=== PATIENT | male | born 1975 | race Caucasian/White ===

== ENCOUNTER 2019-10-15 11:41 | Emergency (ER) | payer OTHER ==
[~2019-10-15] VITALS: Ht 180.3 cm; Wt 104.3 kg
[2019-10-15 11:53] VITALS: BP 120/69
--- NOTE | 2019-10-15 12:17 | NUR ---
TO ED 06 VIA W/C.
--- NOTE | 2019-10-15 12:24 | NUR ---
43 Y/O M C/C RIGHT KNEE SWELLING X 3 WEEKS. DENIES TRAUMA. PER PT TAKEN IBUPROFEN FOR PAIN CONTROL. SKIN IN WARM,DRY TO TOUCH. BILATERAL CMS WDL; ROM LIMITED ON RLE. PAIN 1/10; WITH MOVEMENT PAIN INCREASES. PT NKA. NO HX. NO RX. NO N/V/D. SIDE RAIL X1.
--- NOTE | 2019-10-15 12:24 | NUR ---
Dr. Brown is evaluating the patient at bedside.
--- NOTE | 2019-10-15 12:53 | NUR ---
PT RESTING IN BED, SIDE RAIL X1
--- NOTE | 2019-10-15 13:09 | NUR ---
APPLIED KNEE IMMOBILIZER TO RIGHT KNEE WITHOUT ANY ISSUES. PT DEMONSTRATED PROPER USE OF CRUTCHES
[2019-10-15 13:46] VITALS: BP 120/69
== END 2019-10-15 13:47 | disposition home or self-care (01) ==
LOC: MED 11:41
DX: M25.561 Pain in right knee (principal)
CPT/HCPCS: 73562; 99283

== ENCOUNTER 2020-08-22 21:57 | Emergency (ER) | payer OTHER ==
[~2020-08-22] VITALS: Ht 180.3 cm; Wt 106.6 kg
[2020-08-22 22:00] VITALS: BP 160/98
--- NOTE | 2020-08-22 22:02 | NUR ---
TO LOBBY A/W BED AMBULATORY
--- NOTE | 2020-08-22 22:04 | NUR ---
SEEN AND EXAMINED BY LIZ WITH ORDERS AND CARRIED OUT.
[2020-08-22] MEDS ORDERED: ONDANSETRON 4 MG ODT PO ONE (22:25)
[2020-08-22] MEDS ORDERED: HYDROcodone/APAP 5/325 MG 1 TAB TAB PO ONE (22:25)
--- NOTE | 2020-08-22 22:50 | NUR ---
PATIENT PRESENTS TO ED WITH C/O TESTICLE PAIN . SKIN IS PINK/WARM/DRY; AAOX4 WITH EVEN AND STEADY GAIT; LUNGS CLEAR BL; HR EVEN AND REGULAR; PT DENIES ANY FEVER, CP, SOB, OR COUGH AT THIS TIME; PATIENT STATES PAIN OF 0/10 AT THIS TIME; VSS; PATIENT POSITIONED FOR COMFORT; HOB ELEVATED; BEDRAILS UP X2; BED DOWN. ER MD MADE AWARE OF PT STATUS.
--- NOTE | 2020-08-22 22:52 | NUR ---
TO BED 1 AMBULATORY WITH C/O TESTICLE PAIN RATED 9/10. LABS HAVE BEEN DRAWN
--- NOTE | 2020-08-22 22:54 | NUR ---
PT AMBULATORY TO BED #1
[2020-08-22 23:05] LABS: BASOPHILS % (AUTO) 0.4 % (0.0-2.0); EOSINOPHILS % (AUTO) 0.3 % (0.0-4.0); HEMATOCRIT 42.3 % (36-52); HEMOGLOBIN 13.7 g/dL (12.0-18.0); LYMPHOCYTES # (AUTO) 1.2 K/uL (2.0-11.5); LYMPHOCYTES % (AUTO) 15.1 % (20.5-51.1); MEAN CORPUSCULAR HEMOGLOBIN 26 pg (27-31); MEAN CORPUSCULAR HGB CONC 33 g/dL (33-37); MEAN CORPUSCULAR VOLUME 80.7 fL (80-94); MONOCYTES # (AUTO) 0.3 K/uL (0.8-1.0); MONOCYTES % (AUTO) 4.2 % (1.7-9.3); NEUTROPHILS # (AUTO) 6.3 K/uL (1.8-7.7); PLATELET COUNT (AUTO) 285 K/uL (140-450); RED BLOOD CELL COUNT(AUTO) 5.24 MIL/uL (4.20-6.10); WHITE BLOOD COUNT (AUTO) 7.8 K/uL (4.8-10.8)
[2020-08-22 23:06] LABS: APPEARANCE,URINE CLEAR (CLEAR); BILIRUBIN,URINE 1+ (NEGATIVE); BLOOD, URINE 2+ (NEGATIVE); COLOR,URINE YELLOW (YELLOW); LEUKOCYTE ESTERASE ,URINE NEGATIVE (NEGATIVE); NITRITE, URINE NEGATIVE (NEGATIVE); UGLUCOSE NEGATIVE (NEGATIVE)
[2020-08-22] MEDS ORDERED: ONDANSETRON 4 MG TAB ONE (23:12)
[2020-08-22 23:25] LABS: WBC,URINE 0-5 /HPF (0-5)
[2020-08-22 23:32] LABS: ANION GAP 11.6 (8-16); CARBON DIOXIDE 26.9 mmol/L (21-32); CREATININE 1.3 mg/dL (0.6-1.3); POTASSIUM 4.5 mmol/L (3.5-5.1); TOTAL BILIRUBIN 0.8 mg/dL (0.0-1.0)
[2020-08-23] MEDS ORDERED: NACL 0.9% 1,000 ML IV ONE (00:35)
[2020-08-23] MEDS ORDERED: KETOROLAC 30 MG/ML VIAL IVP ONE (00:35)
--- NOTE | 2020-08-23 00:40 | NUR ---
18G SL ESTABLISHED LEFT A/C. NS FLUID BOLUS BEGUN
--- NOTE | 2020-08-23 01:30 | NUR ---
PAIN IS EASING
[2020-08-23 02:55] VITALS: BP 148/72
--- NOTE | 2020-08-23 02:55 | NUR ---
IV D/C'D CATHETER INTACT.
--- NOTE | 2020-08-23 02:59 | NUR ---
D/C'D HOME, AMBULATORY IN NAD. ACI AND RX IN POSESSION WITH UNDERSTANDING EXPRESSEDPatient discharged with v/s stable. Written and verbal after care instructions given and explained. Patient alert, oriented and verbalized understanding of instructions. Ambulatory with steady gait. All questions addressed prior to discharge. ID band removed. Patient advised to follow up with PMD. Rx of NORCO, IBUPROFEN , AND ZOFRAN given. Patient educated on indication of medication including possible reaction and side effects. Opportunity to ask questions provided and answered.
== END 2020-08-23 02:50 | disposition home or self-care (01) ==
LOC: MED 21:57
DX: N20.0 Calculus of kidney (principal)
CPT/HCPCS: 36415; 74176; 76870; 80053; 81001; 83690; 85025; 96361; 96374; 99285; J1885; Q0162; J7030

== ENCOUNTER 2020-09-12 01:06 | Emergency (ER) | payer OTHER ==
[~2020-09-12] VITALS: Ht 180.3 cm; Wt 102.1 kg
[2020-09-12 01:17] VITALS: BP 147/90
--- NOTE | 2020-09-12 01:17 | NUR ---
to bed ambulatory
--- NOTE | 2020-09-12 01:20 | NUR ---
TO BED 7 AMBULATORY FROM TRIAGE WITH C/O EPIGASTRIC PAIN RADIATING TO LOWER ABDOMEN SINCE YESTERDAY AM. WAS SEEN HERE 2-3 WEEKS AGO FOR SIMILAR COMPLAINT, DX WITH KIDNEY STONE.
[2020-09-12] MEDS ORDERED: ONDANSETRON 4 MG/2 ML VIAL IVP ONE (01:25)
--- NOTE | 2020-09-12 01:35 | NUR ---
[facility]
[2020-09-12] MEDS ORDERED: NACL 0.9% 1,000 ML IV ONE (01:45)
[2020-09-12] MEDS ORDERED: KETOROLAC 30 MG/ML VIAL IVP ONE (01:45)
--- NOTE | 2020-09-12 01:50 | NUR ---
SL ESTABLISHED, IV BOLUS BEGUN FOLLOWED BY MEDS ORDERED
[2020-09-12 01:52] LABS: BASOPHILS # (AUTO) 0.1 K/uL (0.00-0.22); BASOPHILS % (AUTO) 1.1 % (0.0-2.0); EOSINOPHILS # (AUTO) 0.1 K/uL (0-0.4); EOSINOPHILS % (AUTO) 1.4 % (0.0-4.0); HEMATOCRIT 39.5 % (36-52); HEMOGLOBIN 12.6 g/dL (12.0-18.0); LYMPHOCYTES # (AUTO) 1.2 K/uL (2.0-11.5); LYMPHOCYTES % (AUTO) 16.7 % (20.5-51.1); MEAN CORPUSCULAR HEMOGLOBIN 26 pg (27-31); MEAN CORPUSCULAR HGB CONC 32 g/dL (33-37); MEAN CORPUSCULAR VOLUME 80.9 fL (80-94); MONOCYTES # (AUTO) 0.5 K/uL (0.8-1.0); MONOCYTES % (AUTO) 7.2 % (1.7-9.3); NEUTROPHILS # (AUTO) 5.2 K/uL (1.8-7.7); NEUTROPHILS % (AUTO) 73.6 % (42.2-75.2); PLATELET COUNT (AUTO) 268 K/uL (140-450); RED BLOOD CELL COUNT(AUTO) 4.88 MIL/uL (4.20-6.10); RED CELL DISTRIBUTION WIDTH 14.2 % (11.6-13.7)
--- NOTE | 2020-09-12 02:01 | NUR ---
TO CT VIA [facility]
[2020-09-12 02:07] LABS: ALBUMIN 3.4 g/dL (3.4-5.0); ANION GAP 7.9 (8-16); CARBON DIOXIDE 29.6 mmol/L (21-32); CREATININE 1.2 mg/dL (0.6-1.3); POTASSIUM 4.5 mmol/L (3.5-5.1); TOTAL BILIRUBIN 0.5 mg/dL (0.0-1.0)
--- NOTE | 2020-09-12 02:20 | NUR ---
RETURNED FROM CT
[2020-09-12 04:00] VITALS: BP 138/72
--- NOTE | 2020-09-12 04:00 | NUR ---
EXAM RESULTS RETURNED REVIEWED, PT TO BE DISCHARGED
--- NOTE | 2020-09-12 04:21 | NUR ---
Patient discharged with v/s stable. Written and verbal after care instructions given and explained. Patient alert, oriented and verbalized understanding of instructions. Ambulatory with steady gait. All questions addressed prior to discharge. ID band removed. Patient advised to follow up with PMD. Rx of MIRALAX, NORCO, IBUPROFEN given. Patient educated on indication of medication including possible reaction and side effects. Opportunity to ask questions provided and answered.
== END 2020-09-12 04:21 | disposition home or self-care (01) ==
LOC: MED 01:06
DX: K59.00 Constipation, unspecified (principal); R31.9 Hematuria, unspecified
CPT/HCPCS: 36415; 74176; 80053; 81002; 83690; 85025; 93005; 96361; 96374; 96375; 99285; J1885; J2405; J7030